=== PATIENT | male | born 1965 | race Caucasian/White ===

== ENCOUNTER → 2023-05-24 17:59 | Outpatient (REF) | payer OTHER, SELFPAY | LOC: MRI 17:59 | PROVIDERS: ATTENDING PHYSICIAN Orthopaedic Surgery; FAMILY PHYSICIAN Family Medicine | DX: M25.562 Pain in left knee (principal) | CPT/HCPCS: 73721 ==

== ENCOUNTER → 2024-05-29 06:29 | Outpatient (REF) | payer OTHER, SELFPAY ==
[2024-05-29 08:37] LABS: ALT (SGPT) 24 U/L (0-50); AST (SGOT) 23 U/L (17-59); Albumin 4.4 g/dl (3.5-5.0); Alkaline Phosphatase 108 U/L (38-126); Blood Urea Nitrogen 13 mg/dl (9-20); Calcium 9.8 mg/dl (8.4-10.2); Carbon Dioxide 28 mmol/L (22-30); Chloride 99 mmol/L (98-107); Glucose 104 mg/dl (70-99); HDL Cholesterol 49 mg/dl; LDL Cholesterol, Calculated 139 mg/dl; Potassium 4.4 mmol/L (3.5-5.1); Sodium 137 mmol/L (135-145); Total Bilirubin 0.8 mg/dl (0.2-1.3); Total Cholesterol 207 mg/dl (50-199); Total Protein 7.2 g/dl (6.3-8.2); Triglyceride 99 mg/dl (10-149); Very Low Density Lipoprotein 19 mg/dl (0-30); eGFR > 60.00
[2024-05-29 08:56] LABS: Microalbumin, Random Urine <0.6 mg/dl (0.6-1.7)
[2024-05-29 09:02] LABS: PSA, Total - Screen 2.08 ng/ml (0.0-4.0)
[2024-05-29 09:44] LABS: Rubella Positive
[2024-05-29 09:55] LABS: Glycohemoglobin (HgbA1c) 5.9 % (4.0-5.6)
== END ==
LOC: REG 06:29
PROVIDERS: ATTENDING PHYSICIAN Family Medicine
DX: E66.01 Morbid (severe) obesity due to excess calories (principal); R73.02 Impaired glucose tolerance (oral); Z12.5 Encounter for screening for malignant neoplasm of prostate; Z00.00 Encounter for general adult medical examination without abnormal findings; I10 Essential (primary) hypertension; R03.0 Elevated blood-pressure reading, without diagnosis of hypertension; Z01.84 Encounter for antibody response examination
CPT/HCPCS: 36415; 80053; 80061; 82043; 82570; 83036; 86735; 86762; 86765; G0103